=== PATIENT | male | born 1950 | race Caucasian/White ===

== ENCOUNTER 2017-12-10 05:48 | Day surgery (SDC) | payer MEDICARE ==
[~2017-12-10] VITALS: Ht 167.6 cm; Wt 99.8 kg
--- NOTE | ~2017-12-10 | OP ---
PATIENT NAME: ALCIRA RADFORD MEDICAL RECORD: [id number] :50 LOCATION:D.OPS ADMISSION DATE: SURGEON: SHREYAS PENDLETON MD DATE OF OPERATION: 12/10/2017 PREOPERATIVE DIAGNOSES: 1. Umbilical hernia. 2. Hypercholesterolemia. 3. Arthritis. POSTOPERATIVE DIAGNOSES: 1. Umbilical hernia. 2. Hypercholesterolemia. 3. Arthritis. PROCEDURE: Umbilical hernia repair with 4.3-cm Proceed mesh. SURGEON: Shreyas Pendleton MD REPORT OF PROCEDURE: The patient's abdomen was prepped and draped in sterile fashion. A semicircular incision was made on the inferior aspect of the umbilicus. Electrocautery was used to dissect through the subcutaneous tissues. We came around the umbilical stalk and penetrated through the hernia sac using electrocautery. There was incarcerated fatty tissue present. This fatty tissue was released from its attachments and eventually pushed back down into the abdominal cavity. At this point, we were able to clearly visualize the hernia defect. We cleaned off the edges and this was noted to be a little over 2 cm in greatest diameter. We then freed up the fascia above and below and inserted a 4.3-cm Proceed mesh. This was sutured on all 4 sides using interrupted 0 Prolenes. We then closed the fascia overlying the mesh transversely using running 0 Vicryl. The wound was then irrigated out with normal saline. The umbilicus was tacked down to the fascia using an interrupted 3-0 Vicryl and the subcutaneous tissues were reapproximated with multiple interrupted 3-0 Vicryl. The skin was then closed with running subcutaneous 5-0 Monocryl. A total of 10 mL of 0.25% Marcaine plain was infused in the surrounding tissues and the wound was dressed appropriately. COMPLICATIONS: None. CONDITION: Stable. ANESTHESIA: General endotracheal and local. BLOOD LOSS: Minimal. TRANSINT:[id number] Voice Confirmation ID: [id number] DOCUMENT ID: [id number] OPERATIVE REPORT [id number] RADFORDALCIRA Bishop SHREYAS PENDLETON MD at 1110 CC: [id number] DICTATION DATE: 12/10/17 0842 [employer] OBJECTS CONSULTANT: 12/10/17 0904 [facility] 12/10/17 [place] [address]
[~2017-12-10 05:48] MED LIST: ALEVE220 MG PO; CELEXA20 MG PO; FLOMAX0.4 MG PO; PRAVACHOL40 MG PO; SYNTHROID88 MCG PO; VITAMIN B-12500 MC1 PO; ZOVIRAX400 MG PO
[2017-12-10 06:24] LABS: BASOPHILS 0.3 % (0-2); EOSINOPHILS 4.4 % (0-7); HEMOGLOBIN 14.4 g/dL (13.5-17.5); IMMATURE GRANULOCYTES 0.3 % (0-5); LYMPHOCYTES 23.5 % (15-50); MCH 32.2 pg (26.0-34.0); MCHC 34.3 g/dL (31.0-37.0); MONOCYTES 9.3 % (2-11); NEUTROPHILS 62.2 % (40-80); PLATELET COUNT 188 10x3/uL (130-400); RBC 4.47 10x6/uL (4.20-6.10); RDW 13.3 % (11.5-14.5); WBC 7.3 10x3/uL (4.8-10.8)
[2017-12-10 06:34] LABS: ANION GAP 11.9 mmol/L (8-16); CALCIUM 8.7 mg/dL (8.5-10.1); CARBON DIOXIDE 23.8 mmol/L (21.0-32.0); CREATININE - SERUM 1.3 mg/dL (0.6-1.3); POTASSIUM - SERUM 4.7 mmol/L (3.5-5.1)
[2017-12-10 07:13] VITALS: BP 146/72; Ht 167.6 cm; Wt 99.8 kg
[2017-12-10] MEDS ORDERED: HYDROCODONE-APA1 TAB PO (08:38)
== END 2017-12-10 11:30 | disposition home or self-care (01) ==
LOC: D.OPS 05:48 → D.PAN 08:00 → D.OPS 11:30
PROVIDERS: Surgery
DX: K42.9 Umbilical hernia without obstruction or gangrene (principal); E78.00 Pure hypercholesterolemia, unspecified; M19.90 Unspecified osteoarthritis, unspecified site; Z01.812 Encounter for preprocedural laboratory examination